=== PATIENT | female | born 1990 | race Caucasian/White ===

== ENCOUNTER 2023-03-03 08:55 | Emergency (ER) | payer OTHER, SELFPAY ==
[2023-03-03 09:03] VITALS: BP 119/69; PULSE 122; RESP 16; TEMP 37.7; O2SAT 99; BMI 22.7
--- NOTE | 2023-03-03 10:13 | ED.GENADUL1 ---
HPI - General Adult General Chief complaint: Dizziness Stated complaint: GENERAL WEAKNESS Time Seen by Provider: 03/03/23 10:09 Source: patient Mode of arrival: walk-in Limitations: no limitations History of Present Illness HPI narrative: Patient is a 32-year-old female who is presenting to the Emergency Room with multiple symptoms since Monday. Patient has had a fever since Monday. patient has been taking Tylenol Motrin. Patient had nausea this week as well. Patient is breast-feeding a 9-month-old baby. Patient's had no vomiting or diarrhea. Patient does have bilateral frontal headache, no joint pain, no myalgia or arthralgia. Patient has no ear pain. Patient's had some intermittent lightheaded and dizziness, no vertigo. She's had no chest pain or shortness of breath. No diarrhea. No rash. No other acute complaints. patient fell off a horse 3 weeks ago, she has a right scapular fracture and bruised ribs on the left with some abrasions. Patient did have CT of the head and cervical spine at that time that showed no acute abnormality. Patient did have x-rays of the injuries as well. Patient's had no new fall, no new trauma. . All systems are negative except as noted/marked. All systems reviewed and otherwise negative. . Nurses note and vital signs reviewed and patient is not hypoxic. General: The patient appears well and in no apparent distress. Patient is resting comfortably on cart. Patient is not toxic, lethargic, or listless Skin: Warm, dry, no pallor noted. There is no rash noted. No petechiae, purpura. Head: Normocephalic, atraumatic, minimal tenderness to palpation to bilateral frontal sinus. patient has no midline or paracervical tenderness to palpation. Full range of motion of cervical spinal no difficulty. No meningeal signs or symptoms. Eye: Normal conjunctiva, no drainage, EOMI. PERRL Ears, Nose, Mouth, and Throat: oral mucosa is moist. Nares patent. Mouth without vesicles. Cardiovascular: Regular Rate and Rhythm, no murmur, gallop, rub, patient has no abrasions to the anterior, lateral posterior chest wall. Patient still has moderate tenderness to palpation to the left lateral chest wall. Respiratory: Patient is in no distress, no accessory muscle use, lungs are clear to auscultation, no wheezing, rales or rhonchi Back: non-tender, no CVA tenderness bilaterally to percussion. No CT LS midline pain GI: soft, no tenderness to palpation, no masses appreciated. No rebound, guarding, or rigidity noted. No flank pain bilateral, No distention Musculoskeletal: Patient has full range of motion of all of the extremities except to the right shoulder. Patient has mild to moderate pain with any range of motion right shoulder secondary to previous three-week scapula fracture, no motor, sensory, or focal neurological deficits Neurological: A&O x3, normal speech Psychiatric: Cooperative Related Data Home Medications Medication Instructions Recorded Confirmed No Known Home Medications 03/03/23 03/03/23 Allergies Allergy/AdvReac Type Severity Reaction Status Date / Time No Known Drug Allergies Allergy Verified 03/03/23 09:23 Exam Constitutional: Vital Signs, click to edit/add: Vital Signs - 24 hr 03/03/23 09:03 03/03/23 11:11 03/03/23 11:18 Temperature 100 F H 98 F Pulse Rate 110 H 92 H Pulse Rate [Monito r] 122 H Respiratory Rate 16 Blood Pressure [Le ft Arm] 119/69 Pulse Oximetry 99 99 Oxygen Delivery Me thod Room Air Course Vital Signs Vital signs: Vital Signs Temperature 100 F H 03/03/23 09:03 Pulse Rate 122 H 03/03/23 09:03 Respiratory Rate 16 03/03/23 09:03 Blood Pressure 119/69 03/03/23 09:03 Pulse Oximetry 99 03/03/23 09:03 Oxygen Delivery Method Room Air 03/03/23 09:03 Temperature 98 F 03/03/23 11:18 Pulse Rate 92 H 03/03/23 11:18 Respiratory Rate 16 03/03/23 09:03 Blood Pressure 119/69 03/03/23 09:03 Pulse Oximetry 99 03/03/23 11:11 Oxygen Delivery Method Room Air 03/03/23 09:03 Medical Decision Making MDM Narrative Medical decision making narrative: Patient feels significant better after 1 L of IV fluids, and Zofran. Patient's headache is resolved, dizziness has resolved. Patient is drinking fluids. Patient was sent home with a prescription for Zofran to help increase fluids. Patient will follow-up with PCP. Patient will continue treatment for right scapular fracture with her orthopedic surgeon as well. No questions at discharge. Discharge Plan Discharge Chief Complaint: Dizziness Clinical Impression: Dizziness, Orthostatic hypotension, Headache, Nausea Patient Disposition: Home, Self-Care Prescriptions / Home Meds: No Action No Known Home Medications Instructions: Acute Nausea and Vomiting (DC), Lightheadedness (ED), Dizziness (ED), General Headache (ED) Additional Instructions: Continued to increase fluids at home. He is nausea medication as needed to help increase fluids. Follow-up with PCP and orthopedic surgeon. Establish PCP. Stand Alone Forms: Portal Instructions Referrals: Physician,Non-Staff, MD [Primary Care Provider] - 1 week Discharge Date/Time: 03/03/23 12:11
[2023-03-03] MEDS: ACETAMINOPHEN 500 MG TABLET 1000 MG PO (10:40)
[2023-03-03] MEDS: ONDANSETRON PF 4 MG/2 ML VIAL IV (10:40)
[2023-03-03] MEDS: 0.9 % SODIUM CHLORIDE 1,000 ML 1000 ML IV (10:40)
[2023-03-03 11:11] VITALS: PULSE 110; O2SAT 99
[2023-03-03 11:18] VITALS: PULSE 92; TEMP 36.6
== END 2023-03-03 12:11 | disposition home or self-care (01) ==
PROVIDERS: Emergency Provider Emergency Medicine
DX: R42 Dizziness and giddiness (principal); R51.9 Headache, unspecified; I95.1 Orthostatic hypotension; R11.0 Nausea
CPT/HCPCS: 96361; 96374; 99284